=== PATIENT | male | born 1950 | race Caucasian/White ===

== ENCOUNTER → 2019-09-24 | Outpatient (CLI) | payer MEDICARE | END | disposition home or self-care (01) | LOC: RAD 11:54 | PROVIDERS: ATTEND Nurse Practitioner | DX: I82.492 Acute embolism and thrombosis of other specified deep vein of left lower extremity (principal) ==

== ENCOUNTER 2019-09-25 12:31 | Outpatient (CLI) | payer MEDICARE | END 2019-09-25 23:59 | disposition home or self-care (01) | LOC: RAD 12:31 | PROVIDERS: ATTEND Nurse Practitioner | DX: S76.812A Strain of other specified muscles, fascia and tendons at thigh level, left thigh, initial encounter (principal); M25.462 Effusion, left knee; X58.XXXA Exposure to other specified factors, initial encounter; Y93.89 Activity, other specified; Y92.89 Other specified places as the place of occurrence of the external cause; Y99.8 Other external cause status; K57.30 Diverticulosis of large intestine without perforation or abscess without bleeding; N40.0 Benign prostatic hyperplasia without lower urinary tract symptoms ==